=== PATIENT | male | born 1965 | race Caucasian/White ===

== ENCOUNTER 2022-01-06 11:53 | Emergency (ER) | payer OTHER ==
[~2022-01-06] VITALS: Ht 175.3 cm; Wt 70.3 kg
--- NOTE | 2022-01-06 12:01 | NUR ---
PT BIBRA FROM HOME C/O DEPRESSION W/ SI. +PLAN TO OVERDOSE ON PILLS. PT STATES E DID TRIED OVERDOSING W/ HIS PILLS LAST WEDNESDAY. PATIENT IS ASKING TO GO TO PSYCHIATRIC FACILITY. DENIES HI. 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 AWAITING MD LIM.
[2022-01-06] MEDS ORDERED: TAMS-12 PO (12:06)
[2022-01-06] MEDS ORDERED: QUET25TA PO (12:06)
[2022-01-06] MEDS ORDERED: GABA-532 PO (12:06)
[2022-01-06] MEDS ORDERED: MIRT-90 PO (12:06)
--- NOTE | 2022-01-06 12:06 | NUR ---
DR MORRISON AT BEDSIDE FOR EVAL.
--- NOTE | 2022-01-06 12:23 | NUR ---
URINE COLLECTED AND SENT
[2022-01-06 12:56] LABS: BASOPHILS % (AUTO) 0.6 % (0.0-2.0); HEMATOCRIT 39 % (39-51); HEMOGLOBIN 13.2 g/dL (13.5-17.5); LYMPHOCYTES % (AUTO) 11.7 % (20.0-44.0); MEAN CORPUSCULAR HGB CONC 34 g/dl (31.0-36.0); MEAN CORPUSCULAR VOLUME 90 fL (80-96); MONOCYTES # (AUTO) 0.8 K/uL (0.1-1.30); MONOCYTES % (AUTO) 9.6 % (2.0-12.0); NEUTROPHILS # (AUTO) 6.8 K/uL (1.8-8.9); NEUTROPHILS % (AUTO) 77.1 % (43.0-81.0); PLATELET COUNT (AUTO) 160 K/uL (150-450); RED BLOOD CELL COUNT(AUTO) 4.31 MIL/uL (4.5-6.0); WHITE BLOOD COUNT (AUTO) 8.8 K/uL (4.3-11.0)
[2022-01-06 13:04] LABS: CALCIUM, SERUM 9.2 mg/dL (8.5-10.1); CARBON DIOXIDE 30 mmol/L (21-32); CHLORIDE 102 mmol/L (98-107); CREATININE 0.8 mg/dL (0.6-1.3); GLUCOSE 113 mg/dL (74-106); POTASSIUM 3.7 mmol/L (3.5-5.1); SODIUM SERUM 138 mmol/L (136-145); UREA NITROGEN, BLOOD 15 mg/dL (7-18)
[2022-01-06 13:08] LABS: BILIRUBIN,URINE NEGATIVE (NEGATIVE); COLOR,URINE YELLOW (YELLOW); LEUKOCYTE ESTERASE ,URINE NEGATIVE (NEGATIVE); NITRITE, URINE NEGATIVE (NEGATIVE); PROTEIN,URINE NEGATIVE (NEGATIVE); UGLUCOSE NEGATIVE (NEGATIVE); UROBILINOGEN,URINE 0.2 EU/dL (0.2)
[2022-01-06 13:16] LABS: ALANINE AMINOTRANSFERASE 36 U/L (12-78); ALBUMIN 3.7 g/dL (3.4-5.0); ALKALINE PHOSPHATASE 75 U/L (46-116); ASPARTATE AMINOTRANSFERASE 51 U/L (15-37); BILIRUBIN,DIRECT 0.2 mg/dL (0.0-0.2); BILIRUBIN,TOTAL 0.8 mg/dL (0.2-1.0); TOTAL PROTEIN, SERUM 7.3 g/dL (6.4-8.2)
--- NOTE | 2022-01-06 13:32 | NUR ---
FAXED CLINICALS TO [facility]
[2022-01-06 14:19] LABS: ACETAMINOPHEN 0 ug/ml (10-30); ALCOHOL, BLOOD < 3 mg/dL (0-0)
[2022-01-07 09:20] VITALS: BP 125/64
--- NOTE | 2022-01-07 09:48 | NUR ---
CALLED [facility] WILL CALL US BACK WITH ACCEPTANCE INFORMATION PER ART.
--- NOTE | 2022-01-07 10:15 | NUR ---
PT ACCEPTED TO [facility] UND[address] DENIS CALL [phone] X [phone] FOR REPORT
--- NOTE | 2022-01-07 11:39 | NUR ---
TRANSPORTED VIA COUNT [facility]CLUD[facility]. STABLE CONDITION.
== END 2022-01-07 11:41 ==
LOC: ER 11:55
DX: R45.851 Suicidal ideations (principal); F32.A Depression, unspecified; Z20.822 Contact with and (suspected) exposure to COVID-19; Z79.899 Other long term (current) drug therapy
CPT/HCPCS: 36415; 80048; 80076; 80143; 80307; 80320; 81003; 85025; 87426; 99285; C9803; G0480

== ENCOUNTER 2024-11-18 22:35 | Emergency (ER) | payer OTHER ==
[~2024-11-18] VITALS: Ht 165.1 cm; Wt 65.8 kg
[~2024-11-18 22:35] MED LIST: GABA-532 PO; MIRT-90 PO; QUET25TA PO; TAMS-12 PO
[2024-11-19] MEDS ORDERED: METHOCARBAMOL (500MG) 500 MG TABLET ONE ×2 (00:13→04:04)
[2024-11-19] MEDS: METHOCARBAMOL (750MG) 750 MG TABLET PO SCH (00:17)
[2024-11-19] MEDS ORDERED: MORPHINE SULFATE INJ 2 MG/ML DISP.SYRIN IV ONE (03:30)
[2024-11-19] MEDS ORDERED: PRED20TA PO (03:46)
[2024-11-19] MEDS ORDERED: HYDR-3976 GT (03:46)
[2024-11-19] MEDS ORDERED: TIZA4TAB5 PO (03:46)
[2024-11-19] MEDS ORDERED: methylPREDNISolone SOD SUCC 125 MG/2ML VIAL IV ONE (04:00)
[2024-11-19] MEDS ORDERED: MORPHINE SULFATE INJ 4 MG/ML DISP.SYRIN ONE (04:03)
[2024-11-19] MEDS ORDERED: predniSONE 20 MG TABLET ONE (04:03)
[2024-11-19] MEDS: MORPHINE SULFATE INJ 2 MG/ML DISP.SYRIN IM ONE (04:12)
[2024-11-19] MEDS: predniSONE 50 MG TABLET PO ONE (04:12)
[2024-11-19 04:31] VITALS: BP 110/70; TEMP 98; O2SAT 99
== END 2024-11-19 04:32 | disposition home or self-care (01) ==
LOC: ER 22:44
DX: S32.018A Other fracture of first lumbar vertebra, initial encounter for closed fracture (principal); M54.6 Pain in thoracic spine; F32.A Depression, unspecified; R51.9 Headache, unspecified; W01.0XXA Fall on same level from slipping, tripping and stumbling without subsequent striking against object, initial encounter; Y93.89 Activity, other specified; Y92.89 Other specified places as the place of occurrence of the external cause; Y99.8 Other external cause status
CPT/HCPCS: 99285; 70450; 72131; 72128; 96372; J2270; J7512